=== PATIENT | female | born 1985 | race Caucasian/White ===

== ENCOUNTER 2023-06-22 13:46 | Inpatient (IN) ==
[2023-06-22] MEDS ORDERED: OXYTOCIN 30 UNITS/NSS 30 UNITS/500 ML BAG IV PRN (14:26)
[2023-06-22] MEDS ORDERED: LIDOCAINE 1% LOCAL 20 ML VIAL INFIL PRN (14:26)
[2023-06-22 15:01] LABS: Hematocrit (blood only) 37.6 % (37.0-47.0); Mean Corpuscular Hemoglobin 31.1 pg (25.0-34.0); Mean Corpuscular Hgb Conc 34.6 g/dL (32.0-36.0); Mean Platelet Volume 8.8 fL (9.4-12.4); Platelet Count 294 K/uL (130-400); RDW Coefficient of Variation 12.9 % (11.5-14.5); RDW Standard Deviation 42.2 fL (36.4-46.3); Red Blood Count 4.18 M/uL (4.20-5.40); White Blood Count 11.83 K/ul (4.8-10.8)
[2023-06-22 15:18] LABS: Albumin Globulin Ratio 1.1 (0.9-2); Albumin Level 3.4 gm/dl (3.4-5.0); BUN Creatinine Ratio 13.6 (10-20); Bilirubin,Total 0.3 mg/dl (0.2-1.0); Creatinine Clr Calc Pharmacy 139.6 ml/min; Est GFR (African American) 135.7 ml/min; Est GFR (Non-African American) 117.1 ml/min; Globulin 3.1 gm/dl (2.5-4.0); Potassium 3.8 mmol/L (3.5-5.1); Total Protein 6.5 gm/dl (6.0-8.3)
[2023-06-22] MEDS: DINOPROSTONE 10 MG INSERT PV ONE (15:26)
--- NOTE | 2023-06-22 16:02 | History & Physical Report ---
Date of Service June 22, 2023 Assessment & Plan (1) Polyhydramnios affecting in third trimester: Plan: 37-year-old -0-0-1 at 40 weeks and 1 day gestation presenting today for induction of labor for polyhydramnios at term, Vital signs stable afebrile, GBS negative, heart rate category 1, Cervix unfavorable, vertex/presenting part is high, Plan to admit, monitor, labs, Cervidil for cervical ripening, Continue to monitor closely, All questions were answered. Admission and Anticipated Discharge Date Admission Date: June 22, 2023 History of Present Illness Primary Care Provider: CURTIS Herrera Patient is a 37-year-old -0-0-1 at 40 weeks and 1 day gestation who was scheduled for induction of labor at term for polyhydramnios. Her last ultrasound was last week on June 16, PIA was 22 cm. She has no complaints. She denies contractions, leakage of fluid, vaginal bleeding. She reports good movements. Her otherwise has been uncomplicated. GBS negative. Allergies Allergy/AdvReac Type Severity Reaction Status Date / Time No Known Allergies Allergy Verified 08/31/22 00:14 Home Medications Medication Instructions Recorded Confirmed Type PNV 153-FA 400 mcg-om3 35 mg-dha 1 tab PO DAILY 05/19/23 06/22/23 History 25 mg-epa 5 mg-fish oil chew tablet ( Gummies) doxylamine succinate 25 mg tablet 25 mg PO HS PRN Sleep 05/19/23 06/22/23 History magnesium 250 mg tablet 400 mg PO DAILY 05/19/23 06/22/23 History omeprazole 40 mg capsule,delayed 40 mg PO PM 05/19/23 06/22/23 History release Patient History Medical History No pertinent past medical history No pertinent family history Surgical History No pertinent past surgical history Social History Smoking Status: Never smoker Hx Alcohol Use: No Hx Substance Use: No Preferred Language: Albanian Communication Ability: Effective [employer] Consultant Required: No Beliefs That Will Affect Care: None marital status: Single Current Living Situation: Spouse and Family Current Living Situation Comment: joce, son Other Information That Helps Us Care for You: No Feels Safe at Home: Yes Safety Concerns: Feels Safe At This Time Assistive Devices: None OB History FT in 2019 INPATIENT SERVICES DIRECTOR History No STD's, no h/o HSV/ Chlam/ GC Physical Exam Constitutional: WD/WN, vitals as above well developed, well nourished and comfortable Gastrointestinal (Abdomen): normal bowel sounds, soft, nontender, no hepatosplenomegaly (Gravid) Genitourinary: normal external appearance OB Exam Abdomen: + vertex Manual OB Exam: + cervical dilation 2 cm, + cervical effacement 30% and + station high (ballotable head) OB Exam Monitor Tracing: + external uterine monitor used and + category I Results & Data Vital Signs (Past 12 Hours) Vital Signs Temp Pulse Resp BP 06/22/23 15:28 123 H 136/76 06/22/23 14:02 86 131/91 06/22/23 14:02 36.8 C 86 16 131/91
[2023-06-22] MEDS ORDERED: BUTORPHANOL TARTRATE 2 MG/ML VIAL IV PRN (18:52)
[2023-06-22] MEDS ORDERED: ONDANSETRON INJ 2 MG/ML 2 ML VIAL IV PRN (19:04)
[2023-06-22] MEDS: LACTATED RINGER'S 1,000 ML IV PRN (19:04)
--- NOTE | 2023-06-22 19:06 | Obstetrical Progress Note ---
Date of Service June 22, 2023 Assessment & Plan Admission and Anticipated Discharge Date Admission Date: June 22, 2023 Subjective Patient is reevaluated She feels mild cramps and back pain No LOF/VB +FM She is hungry and wants to ear dinner FHR categ I [place] irregular ctxs , patient does not feel them all Plans not to have epidural but will see how she would feel Continue to monitor Results & Data Vital Signs (Past 12 Hours) Vital Signs Temp Pulse Resp BP 06/22/23 18:29 78 134/84 06/22/23 17:30 80 139/85 06/22/23 16:59 92 H 136/81 06/22/23 16:29 89 135/77 06/22/23 15:59 92 H 114/72 06/22/23 15:28 123 H 136/76 06/22/23 14:02 86 131/91 06/22/23 14:02 36.8 C 86 16 131/91
[2023-06-22] MEDS: LACTATED RINGER'S 500 ML IV ONE (19:32)
--- NOTE | 2023-06-23 00:21 | Obstetrical Progress Note ---
Date of Service June 23, 2023 Assessment & Plan Admission and Anticipated Discharge Date Admission Date: June 22, 2023 Subjective Patient has been feeling contractions, pain is 5/10, does not need pain meds , desires Benadryl to sleep VSS afebrile FHR categ I [place] irregular ctxs q 2-5 min VE; 3-4 cm/ 50%, head ballotable, high Continue to monitor closely Will start Oxytocin Results & Data Vital Signs (Past 12 Hours) Vital Signs Temp Pulse Resp BP 06/22/23 22:42 36.9 C 71 18 133/89 06/22/23 19:18 78 134/83 06/22/23 19:13 36.7 C 18 06/22/23 19:05 81 144/99 H 06/22/23 18:29 78 134/84 06/22/23 17:30 80 139/85 06/22/23 16:59 92 H 136/81 06/22/23 16:29 89 135/77 06/22/23 15:59 92 H 114/72 06/22/23 15:28 123 H 136/76 06/22/23 14:02 86 131/91 06/22/23 14:02 36.8 C 86 16 131/91
[2023-06-23] MEDS ORDERED: OXYTOCIN 30 UNITS/NSS 30 UNITS/500 ML BAG IV PRN ×2 (00:22→07:30)
[2023-06-23] MEDS: diphenhydrAMINE Capsule 25 MG CAP PO ONE (00:45)
--- OUTSIDE RECORDS SUMMARY | 2023-06-23 03:10 | External Medical Summary | Summary of Care ---
Author Name Unknown Organization [facility] Address [address] [place] [address] Phone [phone] Care Team Providers Care Field Service Analyst Name Role Phone Unavailable Primary Care Provider Unavailabl e Reason for Visit * Reason Comments Return Visit Non Stress Test Encounter Details Date Type Department Care Team (Late st Contact Info) Description 06/20/2023 1:15 PM EDT Office Visit Gynecology/Obstetric s [facility] [address] [place] [address] Deanne Chicas, YAIMA [address] [place] [address] Tray, Non Stress Tests [facility] [address] [place] [address] Antepartum multigravida of advanced maternal age*; High-risk in third trimester; Obesity affecting , antepartum, unspecified obesity type; Dysplasia of cervix, high grade CHANA 2 Allergies No known active allergiesdocumented as of this encounter (statuses as of 06/20/2023) Medications Medication Sig Dispensed Refills Start Date End Date Status MV & Min w/FA-DHA ( ADULT GUMMY/DHA/FA) 0.4-25 MG CHEW Take by mouth. 0 Active Doxylamine Succinate (Sleep) 25 MG Oral Tablet (Unisom) Take 1 Tablet by mouth at bedtime as needed. 0 Active Riboflavin 400 MG Oral Capsule Take 1 Capsule by mouth in the morning. 0 Active Magnesium 400 MG Oral Tablet Take by mouth. 0 Active Omeprazole 10 MG Oral Capsule Delayed Release (Prilosec) Take 1 Capsule by mouth in the morning. 0 Active Breast PumpIndications:Breas t feeding status of mother HARSHAD 06/21/23, Z39.1, double electric pump 1 Each 0 04/13/2023 Active documented as of this encounter (statuses as of 06/20/2023) Active Problems Problem Noted Date Diagnosed Date Dysplasia of cervix, high grade CHANA 2 01/13/2023 Overview: Needs PP LEEP High-risk 01/11/2023 Obesity affecting 01/11/2023 Overview: Class 2 Growth q4 wks, NST 37 wks Antepartum multigravida of advanced maternal age 0811/16/2022 Estimated Date of Delivery Comme nts Yes 06/21/2023 Based on last me nstrual period of 09/14/2022 documented as of this encounter (statuses as of 06/20/2023) Resolved Problems Problem Noted Date Diagnosed Date Resolved Date ASCUS with positive high risk HPV cervical 11/26/2022 01/13/2023 Overview: ASCUS +HPV on pap at NO[facility]. Colpo in 2nd trimester Abnormal GTT (glucose tolerance test) 01/05/2018 01/11/2023 Overview: 1 hr GT =160 Passed 3hr GTT, all values normal Obesity, Class I, BMI 30.0-3 4.9 (see actual BMI) 09/29/2017 01/11/2023 documented as of this encounter (statuses as of 06/20/2023) Immunizations Name Administration Dates Next Due Seasonal Influenza, PF, 6 M & above, IM , (FluLaval or Fluzone) 02/07/2018 TDAP (age 10 and older)(Boostrix) 03/29/2023, documented as of this encounter Social History Tobacco Use Types Packs/Day Years Used Date Smoking Tobacco: Never Smokeless Tobacco: Never Alcohol Use Standard Drinks/Week Comments Yes 0 (1 standard drink = 0.6 oz pur e alcohol) occasionally Hunger Vital Sign Answer Date Recorded Within the past 12 months, y ou worried that your food would run out before you got the money to buy more. Never true 02/15/20 23 Within the past 12 months, t he food you bought just didn't last and you didn't have money to get more. Never true 02/14/2023 [place] Depression Scale Answer Date Recorded [place] Depression Scale Total 5 04/13/2023 The thought of harming myself has occurred to me . Never 04/13/2023 Estimated Date of Delivery Comme nts Yes 06/21/2023 Based on last me nstrual period of 09/14/2022 Sex and Gender Information Value Date Recorded Sex Assigned at Female 10/28/2022 9:25 AM EDT Gender Identity Female 10/28/2022 9:25 AM EDT Sexual Orientation Straight 10/28/2022 9: 25 AM EDT Job Start Date Occupation Industry Not on file Not on file Not on file documented as of this encounter Last Filed Vital Signs Vital Sign Reading Time Taken Comments Blood Pressure 108/68 06/20/2023 1:46 PM EDT Pulse - - Temperature - - Respiratory Rate - - Oxygen Saturation - - Inhaled Oxygen Concentration - - Weight 90.7 kg (200 lb) 06/20/2023 1:46 PM EDT Height 157.5 cm (5' 2") 06/20/2023 1:46 PM EDT Body Mass Index 36.58 06/20/2023 1:46 PM EDT documented in this encounter Functional Status Functional Status Response Date of Assess ment Does this person have seriou s difficulty walking or climbing stairs? Yes 08/18/2017 documented as of this encounter Progress Notes * Deanne Chicas CNM - 06/20/2023 2:00 PM EDT Ronit Neil is a 37 year old female here for her routine OB appointment at 39w6d Her Estimated Date of Delivery: 06/21/23 REVIEW OF SYSTEMS: She affirms movement. Denies vaginal bleeding, LOF, contractions, N/V, headaches Has had occasional contractions, nothing regular. Request cervical exam today. PHYSICAL EXAM: Filed Vitals: 06/20/23 1346 Weight: 90.7 kg (200 lb) Height: 1.575 m (5' 2") ASSESSMENT assessment with Non-stress Test completed on 06/20/2023 at 38weeks gestation for indication of obesity and polyhydramnios heart baseline: 140 bpm Variability: Moderate Decelerations: absent Accelerations: present Contractions: Present x1 lasting 90sec NST start time: 1333 NST stop time: 1357 NST strip reviewed, interpreted, and approved by OB provider, Hiram Chicas CNM. NST strip stored in clinic storage file CE: 3/50%/-3 ASSESSMENT/PLAN: (O09.529) Antepartum multigravida of advanced maternal age (primary encounter diagnosis) Plan: (O09.90) High-risk Plan: (O99.210) Obesity affecting Plan: (N87.1) Dysplasia of cervix, high grade CHANA 2 Plan: Supervision of - labor precautions and kick counts reviewed - IOL scheduled for 06/22/23 Deanne Chicas CNM documented in this encounter Nursing Notes * Aspen Schofield RN - 06/20/2023 1:46 PM EDT Patient here for NST/ALINA 39w6d IOL 06/21 + FM No leaking/bleeding + irregular contractions documented in this encounter Plan of Treatment Health Maintenance Due Date Last Done Comments Depression Screening 1997 Hepatitis B (1 of 3 - 19+ 3-dose series) 2004 Diabetes Screening 08/18/2020 08/18/2017, 08/18/2017 COVID-19 Vaccine ( - season) 2022 Influenza Vaccine (FLU shot) (Season Ended) 2023 02/07/2018 Pap Smear 11/16/2025 11/16/2022, 05/20, 07/26/2017 Cervical Cancer Screening 11/17/2027 HPV/Co-Test 11/17/2027 11/16/2022 DTaP,Tdap,and Td Vaccines (3 - Td or Tdap) 03/29/2033 03/29/2023, 02/07/2018 GARDASIL-HPV IMMUNIZATION SERIES Completed 10/30/2008, 10/30/2008, 03/07/2007, Additional history exists MENINGOCOCCAL (MENACTRA/MENVEO) Aged Out No longer eligible based on patient's age to complete this topic Pneumococcal Vaccine: Pediatrics (0 to 5 Years) and At-Risk Patients (6 to 64 Years) Aged Out No longer eligible based on patient's age to complete this topic documented as of this encounter Medical Devices Not on filedocumented as of this encounter Visit Diagnoses Diagnosis Antepartum multigravida of advanced maternal age- Primary High-risk in third trimester Obesity affecting , antepartum, unspecified obesity type Dysplasia of cervix, high grade CHANA 2 documented in this encounter Advance Directives Latest Code Status on File Code Status Date Activated Date Inactivated Comments Full Code 03/28/2018 7:31 PM 03/30/2018 1:41 AM This o rder reflects the patients wishes and were consensually agreed upon.
--- OUTSIDE RECORDS SUMMARY | 2023-06-23 03:10 | External Medical Summary | Summary of Care ---
Author Name Unknown Organization [facility] Address [address] [place] [address] Phone [phone] Care Team Providers Care Contestant Coordinator Name Role Phone Unavailable Primary Care Provider Unavailabl e Reason for Visit * Reason Comments Return Visit Non Stress Test Encounter Details Date Type Department Care Team (Late st Contact Info) Description 06/14/2023 1:00 PM EDT Office Visit Gynecology/Obstetric s [facility] [address] [facility] [place] [address] Tamika Ayala CRNP [address] [facility] [place] [address] Tray Non Stress Tests [facility] [address] [place] [address] High-risk in third trimester*; Antepartum multigravida of advanced maternal age; Obesity affecting in third trimester, unspecified obesity type; Dysplasia of cervix, high grade CHANA 2 Allergies No known active allergiesdocumented as of this encounter (statuses as of 06/14/2023) Medications Medication Sig Dispensed Refills Start Date [...] as of this encounter (statuses as of 06/14/2023) Active Problems Problem Noted Date Diagnosed Date [...] as of this encounter (statuses as of 06/14/2023) Resolved Problems Problem Noted Date Diagnosed Date [...] as of this encounter (statuses as of 06/14/2023) Immunizations Name Administration Dates Next Due Seasonal [...] money to get more. Never true 02/14/2023 [place] Depression Scale Answer Date Recorded [place] Depression Scale Total 5 04/13/2023 The thought [...] Sign Reading Time Taken Comments Blood Pressure 126/82 06/14/2023 1:16 PM EDT Pulse - - Temperature - - Respiratory Rate - - Oxygen Saturation - - Inhaled Oxygen Concentration - - Weight 90.5 kg (199 lb 9.6 oz) 06/14/2023 1:16 P M EDT Height - - Body Mass Index 35.37 05/31/2023 8:19 AM EDT documented in this encounter Functional Status Functional Status Response Date of Assess ment Does this person have seriou s difficulty walking or climbing stairs? Yes 08/18/2017 documented as of this encounter Progress Notes * Tamika Ayala CRNP - 06/14/2023 1:13 PM EDT 39w0d + movement. Some inconsistent ctx, desires a cervical check. No bleeding or leaking. Agreeable to scheduling post-dates IOL. Uncertain lie, encouraged to schedule u/s at check out. 1 week return for visit/NST. On Call Pharmacy Technician Documentation Provider requested metal door assembler. Name of metal door assembler: Steffany Sparks LPN ASSESSMENT assessment with Non-stress Test completed on 06/14/2023 at 39 weeks gestation for indication of obesity heart baseline: 140 bpm Variability: Moderate Decelerations: questionable variable x1 Accelerations: present Contractions: None NST start time: 1312 NST stop time: 1338 NST strip reviewed, interpreted, and approved by OB provider, CURTIS Argueta . NST strip stored in clinic storage file CURTIS Argueta documented in this encounter Miscellaneous Notes * Addendum Note - Katheryn Sawyer LPN - 06/14/2023 3:29 PM EDT Addended by: KATHERYN SAWYRE on: 06/14/2023 03:29 PM Modules accepted: Orders * Addendum Note - Tamika Ayala CRNP - 06/14/2023 3:29 PM EDT Addended by: TAMIKA AYALA on: 06/14/2023 03:29 PM Modules accepted: Orders documented in this encounter Plan of Treatment Upcoming Encounters Date Type Department Care Team (Late st Contact Info) Description 06/16/2023 2:30 PM EDT [facility] [address] [facility] [place] [address] 06/20/2023 1:15 PM EDT Office Visit Gynecology/Obstetrics [facility] [address] [facility] [place] [address] Deanne Chicas, YAIMA [address] [place] [address] [facility] Stress Tests [facility] [address] [facility] [place] [address] Scheduled Orders Name Type Priority Associated Diagnoses Orde r Schedule US PREG LIMITED 1 OR MORE FETUSES Medical Imaging Routine High-risk in third trimester Expected: 06/14/2023 (Approximate), Expires: 07/14/2024 Health Maintenance Due Date Last Done Comments Depression Screening 1997 Hepatitis B (1 of 3 - 19+ 3-dose series) 2004 Diabetes Screening 08/18/2020 08/18/2017, 08/18/2017 COVID-19 Vaccine (1 - 2022-24 season) 2022 Influenza Vaccine (FLU shot) (#1) 2022 02/07/2018 Pap Smear 11/16/2025 11/16/2022, 05/20, 07/26/2017 [...] as of this encounter Visit Diagnoses Diagnosis High-risk in third trimester- Primary Antepartum multigravida of advanced maternal age Obesity affecting in third trimester, unspecified obesity type Dysplasia of cervix, high grade CHANA 2 documented in this encounter Advance Directives Latest Code Status on File Code Status Date Activated Date Inactivated Comments Full Code 03/28/2018 7:31 PM 03/30/2018 1:41 AM This o rder reflects the patients wishes and were consensually agreed upon.
--- OUTSIDE RECORDS SUMMARY | 2023-06-23 03:10 | External Medical Summary | Summary of Care ---
Author Name Unknown Organization [facility] Address [address] [place] [address] Phone [phone] Care Team Providers Care Jacquard Card Cutter Name Role Phone Unavailable Primary Care Provider Unavailabl e Reason for Visit * Reason Comments Return Visit Non Stress Test Encounter Details Date Type Department Care Team (Late st Contact Info) Description 06/14/2023 1:00 PM EDT Office Visit Gynecology/Obstetric s [facility] [address] [place] [address] Agnie Toney CRNP [address] [place] [address] Tray Non Stress Tests [facility] [address] [facility] [address] High-risk in third trimester*; Antepartum multigravida of [...] money to get more. Never true 02/14/2023 [place] Depression Scale Answer Date Recorded [place] Depression Scale Total 5 04/13/2023 The thought [...] as of this encounter Progress Notes * Angie Toney CRNP - 06/14/2023 1:13 PM EDT 39w0d + movement. Some inconsistent ctx, desires a cervical check. No bleeding or leaking. Agreeable to scheduling post-dates IOL. Uncertain lie, encouraged to schedule u/s at check out. 1 week return for visit/NST. Precision Lens Grinder Apprentice Documentation Provider requested set up and lay out inspector. Name of set up and lay out inspector: Steffany Sparks LPN ASSESSMENT assessment with Non-stress [...] file CURTIS Argueta documented in this encounter Plan of Treatment Upcoming Encounters Date Type Department Care Team (Late st Contact Info) Description 06/16/2023 2:30 PM EDT Imaging Radiology [facility] [address] [facility] [place] [address] 06/20/2023 1:15 PM EDT Office Visit Gynecology/Obstetrics [facility] [address] [place] [address] Deanne Chicas, YAIMA [address] [place] [address] [facility] Stress Tests [facility] [address] [place] [address] Health Maintenance Due Date Last Done Comments Depression Screening 1997 Hepatitis B (1 of 3 - 19+ 3-dose series) 2004 Diabetes Screening 08/18/2020 08/18/2017, 08/18/2017 COVID-19 Vaccine (2022-24 season) 2022 Influenza Vaccine (FLU shot) (#1) [...]
--- OUTSIDE RECORDS SUMMARY | 2023-06-23 03:10 | External Medical Summary | Summary of Care ---
Author Name Unknown Organization [facility] Address [address] [place] [address] Phone [phone] Care Team Providers Care Purchasing Internship Name Role Phone Unavailable Primary Care Provider Unavailabl e Reason for Visit * Reason Comments Return Visit Non Stress Test Encounter Details Date Type Department Care Team (Late st Contact Info) Description 06/14/2023 1:00 PM EDT Office Visit Gynecology/Obstetric s [facility] [address] [place] [address] Tamika Ayala CRNP [address] [facility] [address] Tray Non Stress Tests [facility] [address] [facility] [address] High-risk in third trimester*; Antepartum multigravida of [...] money to get more. Never true 02/14/2023 [place] Depression Scale Answer Date Recorded [place] Depression Scale Total 5 04/13/2023 The thought [...] check out. 1 week return for visit/NST. Clinical Dental Technician Documentation Provider requested commercial trailer truck driver. Name of commercial trailer truck driver: Steffany Sparks LPN ASSESSMENT assessment with Non-stress [...] 06/14/2023 3:29 PM EDT Addended by: KATHERYN SAWYER on: 06/14/2023 03:29 PM Modules accepted: Orders * Addendum Note - Tamika Ayala CRNP - 06/14/2023 3:29 PM EDT Addended by: TAMIKA AYALA on: 06/14/2023 03:29 PM Modules accepted: Orders documented in this encounter Plan of Treatment Upcoming Encounters Date Type Department Care Team (Late st Contact Info) Description 06/16/2023 2:30 PM EDT [facility] [address] [facility] [place] [address] 06/20/2023 1:15 PM EDT Office Visit Gynecology/Obstetrics [facility] [address] [facility] [place] [address] Deanne Chicas, YAIMA [address] [place] [address] Fat[facility] Stress Tests [facility] [address] [facility] [place] [address] Scheduled Orders Name Type Priority Associated Diagnoses [...]
--- OUTSIDE RECORDS SUMMARY | 2023-06-23 03:10 | External Medical Summary | Summary of Care ---
Author Name Unknown Organization [facility] Address [address] [place] [address] Phone [phone] Care Team Providers Care Reconciliation Coordinator Name Role Phone Unavailable Primary Care Provider Unavailabl e Encounter Details Date Type Department Care Team (Late st Contact Info) Description 05/27/2023 Telephone Gynecology/Obstetrics [facility] [address] [facility] [place] [address] Lang Jones MD [address] [place] [address] Allergies No known active allergiesdocumented as of this encounter (statuses as of 05/27/2023) Medications Medication Sig Dispensed Refills Start Date [...] as of this encounter (statuses as of 05/27/2023) Active Problems Problem Noted Date Diagnosed Date [...] as of this encounter (statuses as of 05/27/2023) Resolved Problems Problem Noted Date Diagnosed Date [...] as of this encounter (statuses as of 05/27/2023) Immunizations Name Administration Dates Next Due Seasonal [...] money to get more. Never true 02/14/2023 [place] Depression Scale Answer Date Recorded [place] Depression Scale Total 5 04/13/2023 The thought [...] on file documented as of this encounter Functional Status Functional Status Response Date of Assess ment Does this person have seriou s difficulty walking or climbing stairs? Yes 08/18/2017 documented as of this encounter Miscellaneous Notes * Telephone Encounter - Samia Nguyen LPN - 05/27/2023 8:37 AM EST left message for patient to call office. Patient missed her last appointment and is [facility]. documented in this encounter Plan of Treatment Health Maintenance Due Date Last Done Comments Depression Screening 1997 Hepatitis B (1 of 3 - 19+ 3-dose series) 2004 Diabetes Screening 08/18/2020 08/18/2017, 08/18/2017 COVID-19 Vaccine ( season) 2022 07/10/2020, 06/19/2020 Influenza Vaccine (FLU shot) (#1) 2022 02/07/2018 [...] Not on filedocumented as of this encounter Advance Directives Latest Code Status on File Code Status Date Activated Date Inactivated Comments Full Code 03/28/2018 7:31 PM 03/30/2018 1:41 AM This o rder reflects the patients wishes and were consensually agreed upon.
--- OUTSIDE RECORDS SUMMARY | 2023-06-23 03:10 | External Medical Summary | Summary of Care ---
Author Name Unknown Organization [facility] Address [address] [place] [address] Phone [phone] Care Team Providers Care Technical Mgr Name Role Phone Unavailable Primary Care Provider Unavailabl e Reason for Visit * Reason Comments Return Visit Non Stress Test Encounter Details Date Type Department Care Team (Late st Contact Info) Description 05/31/2023 8:45 AM EDT Office Visit Gynecology/Obstetric [facility] [address] [facility] [place] [address] Loreto Up MD [address] [facility] [place] [phone] 37 weeks gestation of *; High-risk in third trimester; Obesity affecting in third trimester, unspecified obesity type; Dysplasia of cervix, high grade CHANA 2; Antepartum multigravida of advanced maternal age Allergies No known active allergiesdocumented as of this encounter (statuses as of 05/31/2023) Medications Medication Sig Dispensed Refills Start Date [...] PumpIndications:Breas t feeding status of mother HARSHAD 4/2/24, Z39.1, double electric pump 1 Each 0 04/13/2023 Active documented as of this encounter (statuses as of 05/31/2023) Active Problems Problem Noted Date Diagnosed Date [...] as of this encounter (statuses as of 05/31/2023) Resolved Problems Problem Noted Date Diagnosed Date [...] as of this encounter (statuses as of 05/31/2023) Immunizations Name Administration Dates Next Due Seasonal [...] money to get more. Never true 02/14/2023 [place] Depression Scale Answer Date Recorded [place] Depression Scale Total 5 04/13/2023 The thought [...] Sign Reading Time Taken Comments Blood Pressure 122/76 05/31/2023 8:19 AM EDT Pulse - - Temperature - - Respiratory Rate - - Oxygen Saturation - - Inhaled Oxygen Concentration - - Weight 86.6 kg (191 lb) 05/31/2023 8:19 AM EDT Height 160 cm (5' 2.99") 05/31/2023 8:19 AM EDT Body Mass Index 33.84 05/31/2023 8:19 AM EDT documented in this encounter Functional Status Functional Status Response Date of Assess ment Does this person have seriou s difficulty walking or climbing stairs? Yes 08/18/2017 documented as of this encounter Progress Notes * Loreto Up MD - 05/31/2023 8:45 AM EDT Patient is 37 year old at 37 0/7 weeks who presents for ALINA visit Denies regular contractions, leaking of fluid, or vaginal bleeding. Noted good movement. Was seen at [facility] recently for rule out labor, states she was closed and baby was head down. Recently got over COVID and flu. Sleeping less, took Tylenol last night and it did help Denies headache, blurry vision, RUQ or epigastric pain. Problem list reviewed BP 122/76 | Ht 1.6 m (5' 2.99") | Wt 86.6 kg (191 lb) | LMP 09/14/2022 | BMI 33.84 kg/m | BSA 1.96 m Cx: 1/20/-3 GBS collected [employer] Documentation Provider requested wallpaper hanger. Name of wallpaper hanger: Cassandra Asadmaranda APPLE ASSESSMENT assessment with Non-stress test completed on 05/31/2023 at 37 weeks gestation for indication of obesity heart baseline: 150 bpm Variability: Moderate Accelerations: present Decelerations: ? 1xvariable Contractions: None NST strip reviewed, interpreted, and approved by OB provider, Susanne Up. NST strip stored in clinic storage file NST start time: 817 NST stop time: 840 Plan: Labor and preeclampsia warnings reviewed Flu vaccine declined US growth/position ordered RTC 1 weeks with NST Susanne Up MD PhD documented in this encounter Plan of Treatment Upcoming Encounters Date Type Department Care Team (Late st Contact Info) Description 06/06/2023 1:00 PM EDT Office Visit Gynecology/Obstetrics [facility] [address] [place] [address] Irma Chance, DNP, CNM [address] [facility] [place] [address] Tray Non Stress Tests [facility] [address] [place] [address] 06/14/2023 1:00 PM EDT Office Visit Gynecology/Obstetrics [facility] [address] [place] [address] Angie Toney CRNP [address] [place] [address] Tray Non Stress Tests [facility] [address] [place] [address] Pending Results Name Type Priority Associated Diagnoses Date /Time GROUP B STREP CULTURE/PCR Lab Routine 37 weeks gestation of 05/31/2023 9:10 AM EDT Scheduled Orders Name Type Priority Associated Diagnoses Orde r Schedule GROUP B STREP CULTURE/PCR Lab Routine 37 weeks gestation of Expected: 05/31/2023, Expires: 05/30/2024 US PREG LIMITED 1 OR MORE FETUSES Medical Imaging Routine 37 weeks gestation of Expected: 05/31/2023, Expires: 06/30/2024 Health Maintenance Due Date Last Done Comments Depression Screening 1997 Hepatitis B (1 of 3 - 19+ 3-dose series) 2004 Diabetes Screening 08/18/2020 08/18/2017, 08/18/2017 COVID-19 Vaccine ( - season) 2022 Influenza Vaccine (FLU shot) (#1) [...] as of this encounter Visit Diagnoses Diagnosis 37 weeks gestation of - Primary state, incidental High-risk in third trimester Obesity affecting in third trimester, unspecified obesity type Dysplasia of cervix, high grade CHANA 2 Antepartum multigravida of advanced maternal age documented in this encounter Advance Directives Latest Code Status on File Code Status Date Activated Date Inactivated Comments Full Code 03/28/2018 7:31 PM 03/30/2018 1:41 AM This o rder reflects the patients wishes and were consensually agreed upon.
--- OUTSIDE RECORDS SUMMARY | 2023-06-23 03:10 | External Medical Summary | Summary of Care ---
Author Name Unknown Organization [facility] Address [address] [place] [address] Phone [phone] Care Team Providers Care Human Resources Office Assistant Name Role Phone Unavailable Primary Care Provider Unavailabl e Encounter Details Date Type Department Care Team (Late st Contact Info) Description 05/19/2023 Result Scan Unspecified Department <No scans attached> Allergies No known active allergiesdocumented as of this encounter (statuses as of 05/20/2023) Medications Medication Sig Dispensed Refills Start Date [...] as of this encounter (statuses as of 05/20/2023) Active Problems Problem Noted Date Diagnosed Date [...] as of this encounter (statuses as of 05/20/2023) Resolved Problems Problem Noted Date Diagnosed Date [...] as of this encounter (statuses as of 05/20/2023) Immunizations Name Administration Dates Next Due Seasonal [...] money to get more. Never true 02/14/2023 [place] Depression Scale Answer Date Recorded [place] Depression Scale Total 5 04/13/2023 The thought [...] Yes 08/18/2017 documented as of this encounter Plan of Treatment Health Maintenance Due Date Last Done Comments Depression Screening 1997 Hepatitis B (1 of 3 - 19+ 3-dose series) 2004 Diabetes Screening 08/18/2020 08/18/2017, 08/18/2017 COVID-19 Vaccine (2022-24 season) 2022 07/10/2020, 06/19/2020 Influenza Vaccine (FLU [...] Not on filedocumented as of this encounter Procedures Procedure Name Priority Date/Time Associated Diagnosis Comments RADIOLOGY SCANNED RESULT 05/19/2023 documented in this encounter Results * RADIOLOGY SCANNED RESULT (05/19/2023) 05/19/2023 No Physician Data Unknown DIAGNOSTIC RAD IOLOGY SERVICES documented in this encounter Advance Directives Latest Code Status on File Code Status Date Activated Date Inactivated Comments Full Code 03/28/2018 7:31 PM 03/30/2018 1:41 AM This o rder reflects the patients wishes and were consensually agreed upon.
--- OUTSIDE RECORDS SUMMARY | 2023-06-23 03:10 | External Medical Summary | Summary of Care ---
Author Name Unknown Organization [facility] Address [address] [place] [address] Phone [phone] Care Team Providers Care Nurse Transitional Name Role Phone Unavailable Primary Care Provider Unavailabl e Encounter Details Date Type Department Care Team (Late st Contact Info) Description 06/02/2023 Telephone Gynecology/Obstetrics [facility] [address] [facility] [place] [address] Loreto Up MD [address] [facility] [place] [phone] Allergies No known active allergiesdocumented as of this encounter (statuses as of 06/02/2023) Medications Medication Sig Dispensed Refills Start Date [...] as of this encounter (statuses as of 06/02/2023) Active Problems Problem Noted Date Diagnosed Date [...] as of this encounter (statuses as of 06/02/2023) Resolved Problems Problem Noted Date Diagnosed Date [...] as of this encounter (statuses as of 06/02/2023) Immunizations Name Administration Dates Next Due Seasonal [...] money to get more. Never true 02/14/2023 [place] Depression Scale Answer Date Recorded [place] Depression Scale Total 5 04/13/2023 The [...] encounter Miscellaneous Notes * Telephone Encounter - Aspen Schofield RN - 06/02/2023 7:37 AM EDT ----- Message from Loreto Up MD sent at 06/02/2023 6:50 AM EDT ----- Please let patient know GBS was negative Thank you ----- Message ----- From: Waqar Mae Automated Processing Sent: 06/01/2023 9:40 PM EDT To: Loreto Up MD documented in this encounter Plan of Treatment Upcoming Encounters Date Type Department Care Team (Late st Contact Info) Description 06/06/2023 1:00 PM EDT Office Visit Gynecology/Obstetrics [facility] [address] [place] [address] Irma Chance, NANCY, CNM [address] [place] [address] [place] [address] Tray, Non Stress Tests [facility] [address] [place] [address] 06/14/2023 1:00 PM EDT Office Visit Gynecology/Obstetrics [facility] [address] [place] [address] BackAngie low CRNP [address] [place] [address] Tray, Non Stress Tests [facility] [address] [place] [address] 06/20/2023 1:15 PM EDT Office Visit Gynecology/Obstetrics [facility] [address] [place] [address] Deanne Chicas, LIZET [address] [facility] [place] [address] Tray, Non Stress Tests [facility] [address] [place] [address] Health Maintenance Due Date Last Done Comments [...]
--- OUTSIDE RECORDS SUMMARY | 2023-06-23 03:10 | External Medical Summary | Summary of Care ---
Author Name Unknown Organization [facility] Address [address] [place] [address] Phone [phone] Care Team Providers Care Tool Setter Name Role Phone Unavailable Primary Care Provider Unavailabl e Reason for Visit * Reason Comments Return Visit Non Stress Test Encounter Details Date Type Department Care Team (Late st Contact Info) Description 05/31/2023 8:45 AM EDT Office Visit Gynecology/Obstetric [facility] [address] [facility] [place] [address] Loreto Up MD [address] [facility] [place] [phone] 37 weeks gestation of *; High-risk in [...] money to get more. Never true 02/14/2023 [place] Depression Scale Answer Date Recorded [place] Depression Scale Total 5 04/13/2023 The thought [...] bleeding. Noted good movement. Was seen at [facility] recently for rule out labor, states she [...] BSA 1.96 m Cx: 1/20/-3 GBS collected Machine Folder Documentation Provider requested user support analyst. Name of user support analyst: Cassandra Asadmaranda APPLE ASSESSMENT assessment with Non-stress [...] Gynecology/Obstetrics [facility] [address] [place] [address] Irma Chance, DNP, CNM [address] [facility] [place] [address] Tray Non Stress Tests [facility] [address] [place] [address] 06/14/2023 1:00 PM EDT Office Visit Gynecology/Obstetrics [facility] [address] [place] [address] Angie Toney CRNP [address] [place] [address] Tray Non Stress Tests [facility] [address] [place] [address] Pending Results Name Type Priority Associated Diagnoses [...]
--- OUTSIDE RECORDS SUMMARY | 2023-06-23 03:10 | External Medical Summary | Summary of Care ---
Author Name Unknown Organization [facility] Address [address] [place] [address] Phone [phone] Care Team Providers Care Retread Technician Name Role Phone Unavailable Primary Care Provider Unavailabl e Reason for Visit * Reason Onset Date Comments Hospital Follow-Up 05/20/2023 MEGAN Encounter Details Date Type Department Care Team (Late st Contact Info) Description 05/20/2023 Telephone Ancillary [facility] Giuliana Kendleton [address] [place] [address] Deanna Blount RN Hospital Follow-Up (MEGAN) Allergies No known active allergiesdocumented as of [...] money to get more. Never true 02/14/2023 [place] Depression Scale Answer Date Recorded [place] Depression Scale Total 5 04/13/2023 The thought [...] encounter Miscellaneous Notes * Telephone Encounter - Deanna Blount RN - 05/20/2023 8:26 AM EST Chart reviewed and MEGAN not indicated, Pt has a follow up with [facility] SCH[facility] No pcp follow up recommended at this time. documented in this encounter Plan of Treatment Health Maintenance Due Date Last Done Comments Depression Screening 1997 Hepatitis B (1 of 3 - 19+ 3-dose series) 2004 Diabetes Screening 08/18/2020 08/18/2017, 08/18/2017 COVID-19 Vaccine (2022- season) 2022 07/10/2020, 06/19/2020 Influenza Vaccine (FLU [...]
--- OUTSIDE RECORDS SUMMARY | 2023-06-23 03:10 | External Medical Summary ---
Author Name Unknown Address Unknown Organization [id number]:[facility] - [facility][note 3] [address] [facility] [address] Laboratory Report Ordering Provider Test Date Status JUDY TERRY 05/31/2023 09:10:13 Final Observation Date Value Abnormality Reference (Units ) Status Streptococcus agalactiae DNA [Presence] in Specimen by ONDINA with probe detection 05/31/2023 09:10:13 Negative Negative Final No Group B Streptococcus det ected by culture-enhanced PCR (amplified probe).
The collection of vaginal/rectal swab specimen combinations (FDA approved specimen type) is optimal for the detection of Group B Streptococcus. Single source collection (vaginal only or rectal only) or alternate specimen sources may lead to false negative results. Performing Location [facility] - [address] [facility] [place] [address]
--- OUTSIDE RECORDS SUMMARY | 2023-06-23 03:10 | External Medical Summary | Summary of Care ---
Author Name Unknown Organization [facility] Address [address] [place] [address] Phone [phone] Care Team Providers Care Detonator Maker Name Role Phone Unavailable Primary Care Provider Unavailabl e Reason for Visit * Reason Comments Return Visit Non Stress Test Encounter Details Date Type Department Care Team (Late st Contact Info) Description 06/20/2023 1:15 PM EDT Office Visit Gynecology/Obstetric s [facility] [address] [place] [address] Deanne Chicas, YAIMA [address] [place] [address] Tray, Non Stress Tests [facility] [address] [place] [address] Antepartum multigravida of advanced maternal age*; High-risk [...] money to get more. Never true 02/14/2023 [place] Depression Scale Answer Date Recorded [place] Depression Scale Total 5 04/13/2023 The thought [...]
--- OUTSIDE RECORDS SUMMARY | 2023-06-23 03:10 | External Medical Summary | Summary of Care ---
Author Name Unknown Organization [facility] Address [address] [place] [address] Phone [phone] Care Team Providers Care Communications Station Manager Name Role Phone Unavailable Primary Care Provider Unavailabl e Reason for Visit * Reason Comments Return Visit Non Stress Test Encounter Details Date Type Department Care Team (Late st Contact Info) Description 05/31/2023 8:45 AM EDT Office Visit Gynecology/Obstetric [facility] [address] [facility] [place] [address] Loreto Up MD [address] [facility] [place] [address] 37 weeks gestation of *; High-risk in [...] money to get more. Never true 02/14/2023 [place] Depression Scale Answer Date Recorded [place] Depression Scale Total 5 04/13/2023 The thought [...] bleeding. Noted good movement. Was seen at [facility] recently for rule out labor, states she [...] BSA 1.96 m Cx: 1/20/-3 GBS collected Supervisor Calibration Documentation Provider requested forming department supervisor. Name of forming department supervisor: Cassandra Asadmaranda APPLE ASSESSMENT assessment with Non-stress [...] Gynecology/Obstetrics [facility] [address] [place] [address] Irma Chance, DNP, CNM [address] [facility] [place] [address] Tray Non Stress Tests [facility] [address] [place] [address] 06/14/2023 1:00 PM EDT Office Visit Gynecology/Obstetrics [facility] [address] [place] [address] Angie Toney CRNP [address] [place] [address] Tray Non Stress Tests [facility] [address] [place] [address] Pending Results Name Type Priority Associated Diagnoses [...]
[2023-06-23] MEDS ORDERED: NALOXONE HCL 0.4 MG/1 ML VIAL/CARP IV PRN (05:33)
[2023-06-23] MEDS ORDERED: NALBUPHINE HCL 5 MG in SYRINGE 0 ML IV PRN (05:33)
[2023-06-23] MEDS ORDERED: ROPIVACAINE 0.5% PF 5 MG/ML 20 ML VIAL EPI PRN (05:33)
[2023-06-23] MEDS ORDERED: fentaNYL citrate PF 100 MCG/2 ML VIAL EPI PRN (05:33)
[2023-06-23] MEDS ORDERED: BUPIVACAINE 0.25% PF 30 ML VIAL EPI PRN (05:33)
[2023-06-23] MEDS ORDERED: ePHEDrine sulfate 50 MG/ML AMP IV PRN (05:33)
[2023-06-23] MEDS ORDERED: SODIUM CHLORIDE 0.9% PF INJ 10 ML VIAL EPI PRN (05:33)
[2023-06-23] MEDS ORDERED: NALOXONE HCL 1 MG in SODIUM CHLORIDE 0.9% 1,000 ML IV PRN (05:33)
[2023-06-23] MEDS ORDERED: diphenhydrAMINE 50 MG/ML VIAL IV PRN (05:33)
[2023-06-23] MEDS ORDERED: LIDOCAINE 2% MPF LOCAL 5 ML VIAL EPI PRN (05:33)
--- NOTE | 2023-06-23 05:36 | Anesthesiology Consultation ---
Date of Service June 23, 2023 Assessment & Plan Chart Review Chart Review: Patient NOT seen in Pre Admission Testing and Acceptable Risk for Labor Epidural Consults Requested none ASA ASA2 Proposed Anesthesia Anesthesia Type: Labor Epidural Risk / Benefits Reviewed With: PT / POA / Parent / Guardian, Accepts Plan and Informed Consent Obtained History Height/Weight Height: 5 ft 3 in Weight: 90.718 kg Allergies Allergy/AdvReac Type Severity Reaction Status Date / Time No Known Allergies Allergy Verified 08/31/22 00:14 Medications Home Medications Medication Instructions Recorded Confirmed Last Taken PNV 153-FA 400 mcg-om3 35 mg-dha 1 tab PO DAILY 05/19/23 06/22/23 06/22/23 25 mg-epa 5 mg-fish oil chew tablet ( Gummies) doxylamine succinate 25 mg tablet 25 mg PO HS PRN Sleep 05/19/23 06/22/23 06/21/23 magnesium 250 mg tablet 400 mg PO DAILY 05/19/23 06/22/23 06/21/23 omeprazole 40 mg capsule,delayed 40 mg PO PM 05/19/23 06/22/23 06/21/23 release Active Medications Generic Name Dose Route Start Last Admin Trade Name Freq PRN Reason Stop Dose Admin Fentanyl/Bupivacaine/Sodium Chlor 100 ml 06/23/23 05:33 06/23/23 05:52 Fentanyl 2 Mcg/Ml Bupivacaine 0.125%-Nss 100ml Bag EPI 06/24/23 05:32 100 ml PRN PRN Administration Pain R/T Labor Protocol Lactated Ringer's 1,000 mls @ 125 mls/hr 06/22/23 14:26 06/23/23 00:45 Lr IV 06/24/23 14:25 0 mls/hr .Q8H PRN Infusion L&D Protocol Protocol NPO Date Last Intake of Fluids: 06/23/23 Time Last Intake of Fluids: 05:00 Date Last Intake of Solids: 06/22/23 Time Last Intake of Solids: 19:00 Past Medical History Medical History No pertinent past medical history No pertinent family history Exercise / Class Metabolic Activity II 4-5 Yardwork/Stairs/Walk up hill Past Surgical History Surgical History No pertinent past surgical history Past Anesthesia History No Hx of Anesthesia Complications and No Family Hx of Anesthesia Complications History of PONV No Hx of PONV and No Hx of Motion Sickness Social History Smoking Status: Never smoker Hx Alcohol Use: No Hx Substance Use: No Review of Systems ROS Unobtainable: All systems reviewed & are unremarkable except as noted in HPI & below Physical Exam Vital Signs Last Vital Signs Temp 36.7 C 06/23/23 03:32 Pulse 74 06/23/23 05:30 Resp 18 06/23/23 03:32 BP 137/88 06/23/23 03:32 Pulse Ox 90 06/23/23 05:30 ENMT Mouth: no TMJ abnormality Thyromental Distance: > or= 3.5 Finger Breadths Mallampati Class: II Neck normal visual inspection and trachea midline; neck extension not limited Respiratory normal respiratory effort Auscultation: lungs clear to auscultation bilaterally Cardiovascular Rate/Rhythm: regular rate and regular rhythm Heart Sounds: no murmur Musculoskeletal Spine: normal cervical ROM Extremities: full ROM of extremities Neurologic moves all extremities Psychiatric Orientation: alert and oriented x 3 Testing Laboratory Results 06/22/23 14:33 06/22/23 14:33 Blood Type O Positive 06/22/23 14:33 Antibody Screen NEGATIVE 06/22/23 14:33
[2023-06-23] MEDS: fentaNYL citrate PF 100 MCG/2 ML VIAL EPI STA (05:50)
[2023-06-23] MEDS: fentANYL 2 MCG/ML BUPIVacaine 0.125%-NSS 100ML BAG EPI PRN (05:52)
[2023-06-23] MEDS: LIDOCAINE 2%/EPINEPHRINE 1:200,000 20 ML PF EPI STA (05:52)
[2023-06-23] MEDS: BUPIVACAINE 0.25% PF 30 ML VIAL EPI STA (05:52)
[2023-06-23] MEDS: LIDOCAINE 2%/EPINEPHRINE 1:200,000 20 ML PF ONE (07:02)
[2023-06-23] MEDS: SODIUM CHLORIDE 0.9% PF INJ 10 ML VIAL ONE (07:02)
[2023-06-23] MEDS: SODIUM CHLORIDE 0.9% PF INJ 10 ML VIAL EPI STA (07:02)
[2023-06-23] MEDS: BUPIVACAINE 0.25% PF 30 ML VIAL ONE (07:03)
[2023-06-23] MEDS: fentANYL 2 MCG/ML BUPIVacaine 0.125%-NSS 100ML BAG ONE (07:03)
[2023-06-23] MEDS: fentaNYL citrate PF 100 MCG/2 ML VIAL ONE (07:03)
[2023-06-23] MEDS: ePHEDrine sulfate 50 MG/ML AMP ONE (07:03)
[2023-06-23] MEDS ORDERED: HYDROCORTISONE ACETATE 25 MG SUPP PR PRN (07:30)
[2023-06-23] MEDS ORDERED: BENZOCAINE 20% SPRY 85 APPLN/85 GM CAN EXT PRN (07:30)
[2023-06-23] MEDS ORDERED: bisacodyL 10 MG SUPP PR PRN (07:30)
[2023-06-23] MEDS ORDERED: ACETAMINOPHEN 325 MG TAB PO PRN (07:30)
--- NOTE | 2023-06-23 07:33 | Delivery Summary ---
Vaginal Delivery Summary Date of Service June 23, 2023 Vaginal Delivery Summary Patient was found to be fully dilated and desires to push. She pushed with 2 contractions only and delivered the head and then whole body with it quickly.There was a nuchla and body cordx1 and was reduced. The baby was handed off to the mother. The cord was clampedx2 and cut at 1 minute. The vagina and perineum were checked and found to be intact. The placenta was delivered spontaneously as intact and complete. The uterus was explored and found to be empty. QBL was 50 ml. The fundus was firm The baby was a viable female , Apgars 8/8, the weight is pending The mother and the baby tolerated the procedure well. No complications happened and I was present during whole procedure.
--- NOTE | 2023-06-23 08:09 | Anesthesia Procedure Note ---
Date of Service June 23, 2023 Anesthesia Post Epidural Note Vital Signs Vital Signs: Temp Pulse Resp BP Pulse Ox 36.7 C 85 20 117/65 97 06/23/23 03:32 06/23/23 08:04 06/23/23 07:00 06/23/23 07:56 06/23/23 08:04 Notes Mental Status: alert / awake / arousable and participated in evaluation Nausea / Vomiting: adequately controlled Pain: adequately controlled Airway Patency, RR, SpO2: stable & adequate BP & HR: stable & adequate Hydration State: stable & adequate Neuraxial Anesthesia: was administered and sensory block is resolving Anesthetic Complications: no major complications apparent Epidural: Removed without complications and With tip intact
[2023-06-23] MEDS: DIPHTHER/TETAN/PERTUS Vaccine (Tdap, Adol/Adult) 0.5mL IM ONE (11:00)
[2023-06-23] MEDS: MEASLES, MUMPS & RUBELLA VIRUS VACCINE (MMR) 0.5ML VIAL SQ ONE (11:01)
[2023-06-23] MEDS: DOCUSATE SODIUM 100 MG CAP PO SCH (11:02)
[2023-06-23] MEDS: FERROUS SULFATE 325 MG TAB PO SCH (11:02)
[2023-06-23] MEDS: PRENATAL VITAMIN 1 TAB PO SCH (11:02)
[2023-06-23] MEDS: IBUPROFEN 600 MG TAB PO PRN (18:31)
[2023-06-24 08:10] LABS: Hematocrit (blood only) 34.1 % (37.0-47.0); Hemoglobin 11.6 g/dl (12.0-16.0); Mean Corpuscular Volume 91.2 fL (80.0-100.0); Platelet Count 247 K/uL (130-400); RDW Coefficient of Variation 13.2 % (11.5-14.5); RDW Standard Deviation 43.2 fL (36.4-46.3); Red Blood Count 3.74 M/uL (4.20-5.40); White Blood Count 13.01 K/ul (4.8-10.8)
--- NOTE | 2023-06-24 09:27 | Obstetrical Progress Note ---
Date of Service June 24, 2023 Assessment & Plan Admission and Anticipated Discharge Date Admission Date: June 22, 2023 Subjective Patient is seen and examined. She feels well, no complaints. Ambulating without dizziness Voiding without difficulty Tolerating regular diet with out N&V Bleeding is minimal No fever/ chills/ CP/ SOB/ N&V/ Leg pain Breast feeding without problems Vital Signs Temp Pulse Resp BP BP Pulse Ox O2 Del Method 06/24/23 08:00 36.6 C 79 16 136/84 97 Room Air 06/24/23 03:10 82 16 108/68 96 Room Air 06/23/23 23:05 36.6 C 72 18 137/84 96 Room Air Lab Results 06/22/23 06/24/23 Range/Units 14:33 07:27 WBC 11.83 H 13.01 H (4.8-10.8) K/ul RBC 4.18 L 3.74 L (4.20-5.40) M/uL Hgb 13.0 11.6 L (12.0-16.0) g/dl Hct 37.6 34.1 L (37.0-47.0) % MCV 90.0 91.2 (80.0-100.0) fL MCH 31.1 31.0 (25.0-34.0) pg MCHC 34.6 34.0 (32.0-36.0) g/dL RDW Std Deviation 42.2 43.2 (36.4-46.3) fL RDW Coeff of [place] 12.9 13.2 (11.5-14.5) % Plt Count 294 247 (130-400) K/uL MPV 8.8 L 9.0 L (9.4-12.4) fL Sodium 133 L (136-145) mmol/L Potassium 3.8 (3.5-5.1) mmol/L Chloride 105 (98-107) mmol/L Carbon Dioxide 19 L (21-32) mmol/L Anion Gap 9 (3-11) BUN 8 (6-23) mg/dl Creatinine 0.59 L (0.6-1.2) mg/dl Est Cr Clr Drug Dosing 139.6 ml/min Est GFR ( Amer) 135.7 ml/min Est GFR (Non-Af Amer) 117.1 ml/min BUN/Creatinine Ratio 13.6 (10-20) Glucose 140 H (70-99(Fasting)) mg/dl Calcium 9.0 (8.6-10.3) mg/dl Total Bilirubin 0.3 (0.2-1.0) mg/dl AST 13 (13-39) U/L ALT 9 (7-52) U/L Alkaline Phosphatase 179 H (34-104) U/L Total Protein 6.5 (6.0-8.3) gm/dl Albumin 3.4 (3.4-5.0) gm/dl Globulin 3.1 (2.5-4.0) gm/dl Albumin/Globulin Ratio 1.1 (0.9-2) Blood Type O Positive Antibody Screen NEGATIVE PE: General: Alert, orientedx3, NAD Abd: soft, NT, fundus firm, below Umbilicus Perineum intact, Lochia rubra minimal Ext; NT, no edema AP: 37 yo s/p , ppd# 1 VSS Afebrile doing well Continue routine care Desires d/c today All questions were answered D/C home , f/u in office Results & Data Vital Signs (Past 12 Hours) Vital Signs Temp Pulse Resp BP BP Pulse Ox O2 Del Method 06/24/23 08:00 36.6 C 79 16 136/84 97 Room Air 06/24/23 03:10 82 16 108/68 96 Room Air 06/23/23 23:05 36.6 C 72 18 137/84 96 Room Air
[2023-06-24] MEDS ORDERED: bisacodyL 5 MG TABEC PO SCH (20:00)
== END 2023-06-24 16:10 | disposition home or self-care (01) | DRG 807 ==
LOC: 4S1 13:46 → 4E2 06-23 10:05